=== PATIENT | female | born 1965 | race Caucasian/White ===

== ENCOUNTER 2017-01-11 08:46 | Day surgery (SDC) | payer OTHER ==
[2017-01-09 11:39] VITALS: BMI 19.5
--- NOTE | 2017-01-11 10:49 | HP ---
Satellite H - Chief Complaint Chief Complaint: right thumb pain - Past Medical History Allergies/Adverse Reactions: Allergies Allergy/AdvReac Type Severity Reaction Status Date / Time mepivacaine HCl Allergy Severe Difficulty Verified 01/11/17 09:59 [From Carbocaine] Breathing Z-GRISEL Allergy Uncoded 01/11/17 09:59 ...LMP Comment: 2014 - Current Medications Current Medications: Home Medications Medication Instructions Recorded Amlodipine Besylate [Norvasc -] 10 mg PO HS 01/09/17 Cevimeline HCl [Evoxac] 30 mg PO TID 01/09/17 Clonazepam [Klonopin] 1 mg PO PRN PRN 01/09/17 Cyclobenzaprine HCl [Flexeril 10 10 mg PO HS 01/09/17 mg] Fluoxetine HCl [Prozac -] 20 mg PO DAILY 01/09/17 Levothyroxine [Synthroid -] 75 mcg PO DAILY 01/09/17 Montelukast Na [Singulair -] 10 mg PO DAILY 01/09/17 Eletriptan Hydrobromide [Relpax -] 40 - 80 mg PO ONCE PRN 01/11/17 Hydrocodone/Acetaminophen 1 - 2 each PO Q6H PRN #40 tablet 01/11/17 [Hydrocodon-Acetaminophen 5-300] MDD 8 Satellite Physical Exam - Physical Examination Vital Signs: Vital Signs Period Temp Pulse Resp BP Sys/Masterson Pulse Ox Last 24 Hr 98.3 F 79 18 93/49 98 General Appearance: Well Nourished, Well Developed, Alert & Oriented x3 ENT: Clear Lung: Normal air movement Heart: Regular rate & rhythm Extremities: Other (right thumb- + ttp [id number], + locking, nvi) Neurological: Intact, Alert, Oriented Satellite Impression/Plan - Impression/Plan Impression: right trigger thumb Operative Procedure: right thumb trigger release Date to be Performed: 01/11/17
[2017-01-11] MEDS ORDERED: MIDAZOLAM HCL 2 MG/2 ML SINGLE DOSE VIAL ONE ×2 (11:15)
[2017-01-11] MEDS ORDERED: LIDOCAINE HCL 1%, 10 MG/ML (20ML VIAL) ONE (11:22)
[2017-01-11] MEDS ORDERED: BUPIVACAINE HCL/PF 0.5% (5MG/ML) 10 ML VIAL ONE (11:23)
[2017-01-11] MEDS ORDERED: ceFAZolin SODIUM 1 GM VIAL ONE (11:42)
[2017-01-11] MEDS ORDERED: oxyCODONE HCL 5 MG TABLET PO PRN (11:56)
[2017-01-11] MEDS ORDERED: ONDANSETRON 4 MG/2 ML VIAL IVPUSH PRN (11:56)
[2017-01-11] MEDS ORDERED: ACETAMINOPHEN 1000 MG/100 ML VIAL (NON FORMULARY) IVPB PRN (11:57)
[2017-01-11] MEDS ORDERED: LACTATED RINGERS SOLUTION 1,000 ML IV SCH (12:00)
--- NOTE | 2017-01-11 12:04 | OP ---
Operative Note - Note: Operative Date: 01/11/17 ([facility]) Pre-Operative Diagnosis: right thumb trigger finger Operation: right thumb trigger release Post-Operative Diagnosis: Same as Pre-op Surgeon: Jordon Boogie Anesthesiologist/DRYING FRAME OPERATOR: Chantal Roy Anesthesia: Local, MAC Estimated Blood Loss (mls): 0 (tourniquet) Operative Report Dictated: Yes
[2017-01-11 13:33] VITALS: PULSE 77
[2017-01-11] MEDS ORDERED: IBUPROFEN 600 MG TABLET (FP) PO ONE (14:23)
[2017-01-11 15:18] VITALS: BP 108/60; TEMP 97.6
--- NOTE | 2017-01-12 11:04 | SPEC ---
DATE OF OPERATION: 01/11/2017 PREOPERATIVE DIAGNOSIS: Right trigger thumb. POSTOPERATIVE DIAGNOSIS: Right trigger thumb. PROCEDURE: Right trigger thumb release and tendon sheath excision. SURGEON: Shubham Vargas MD ASSISTANTS: None. ANESTHESIOLOGIST: Chantal Roy CRNA ANESTHESIA: MAC anesthesia with local injection of 8 mL 0.50% Marcaine and 1% lidocaine mix. DRAINS: None. COMPLICATIONS: None. SPECIMEN: Tendon sheath, right thumb. BLOOD LOSS: None. BLOOD GIVEN: None. FLUID REPLACEMENT: 500 mL. INDICATIONS: The patient is a 51-year-old female with preoperative diagnosis of recurrent right trigger thumb. After failing nonoperative treatment including 2 cortisone injections, we discussed the potential risks, complications, alternatives, and benefits of surgery vs. nonsurgical treatment, and the patient elected to undergo this procedure. PROCEDURE: The patient was brought to the operating room, IV was placed, IV sedation was given. One gram of intravenous Ancef given. A tourniquet was applied to the right upper arm and the right upper extremity was prepped and draped in sterile fashion. The entire case was done under 3.8 loupe magnification. A marking pen was utilized to margaret out a longitudinal incision in an already existing skin crease at the base of the right thumb. Then 10 mL of 0.5% Marcaine mixed with 1% Lidocaine was injected in and around the incision. The right upper extremity was elevated, exsanguinated with an Esmarch bandage and the tourniquet inflated to 250 mmHg. A No. 15 scalpel blade was utilized to cut down through the skin. Subcutaneous hemostasis was achieved with the bipolar cautery. Additional dissection was done with Littler scissors until I was able to directly visualize the A1 nolberto sheath in its entirety. Self-retaining retractors were placed into the wound. A free air elevator was used to free up the tissue on the radial side, the ulnar side distally and proximally under better visualization of A1 nolberto sheath. Next, using a fresh No. 15 scalpel blade, I excised the central one-third of the A1 nolberto sheath and passed it off the field as specimen, tendon sheath, right thumb. I then completed the release, both distally and proximally, and brought the FDS and FDP tendons out through the wound with a Ragnell retractor. There were no abnormal points of compression. I was able to move the right thumb without the tendons bunching up at all. The area was then copiously irrigated and washed out. I then checked one more time to make sure there were no abnormal points of compression. None were seen and therefore closure was begun. One stitch using 4-0 Vicryl was used in the deep dermal layer. Skin was reapproximated with 4-0 Nylon sutures in a horizontal mattress fashion. The area was then washed and dried, covered with Xeroform gauze, sterile 4x4s, fluffs between the fingers, Webril and Coban. The tourniquet was taken down after a total tourniquet time of 20 minutes. There were no complications during the case. The patient tolerated the procedure well and was brought to the Ambulatory recovery Room in stable condition. SHUBHAM VARGAS M.D. [id number]
== END 2017-01-11 15:20 | disposition home or self-care (01) ==
LOC: JASU-SURG 08:46
PROVIDERS: ATTEND Orthopaedic Surgery
PROC: 0LN70ZZ Release Right Hand Tendon, Open Approach (ICD-10-PCS; principal; 2017-01-11 10:30)
DX: M65.311 Trigger thumb, right thumb (principal)
CPT/HCPCS: 94760